=== PATIENT | male | born 2000 | race Caucasian/White ===

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

== ENCOUNTER 2019-11-05 02:22 | Emergency (ER) | payer MEDICAID, SELFPAY ==
[~2019-11-05] VITALS: Ht 170.2 cm; Wt 65.8 kg
[2019-11-05 02:24] VITALS: Ht 170.2 cm; Wt 65.8 kg
[2019-11-05 04:45] VITALS: BP 120/89
== END 2019-11-05 04:45 | disposition home or self-care (01) ==
LOC: ED 02:22
DX: R05 Cough (principal); M79.604 Pain in right leg; M79.605 Pain in left leg; R51 Headache; Z20.828 Contact with and (suspected) exposure to other viral communicable diseases
CPT/HCPCS: Q0092; U0003-CS